=== PATIENT | female | born 1980 | race Caucasian/White ===

== ENCOUNTER → 2020-12-30 | Outpatient (CLI) | payer BC ==
[~2020-12-30] MED LIST: COLACE 100MG C100 MG PO
== END ==
LOC: KOH-I 10:45
DX: R10.9 Unspecified abdominal pain (principal); R14.3 Flatulence
CPT/HCPCS: 74018

== ENCOUNTER → 2021-02-15 | Outpatient (CLI) | payer BC | LOC: KOH-I 08:15 | DX: R10.9 Unspecified abdominal pain (principal); N20.0 Calculus of kidney | CPT/HCPCS: 74176 ==